=== PATIENT | female | born 1940 | race Caucasian/White ===

== ENCOUNTER → 2016-10-03 | Outpatient (CLI) | payer MEDICARE, OTHER ==
--- NOTE | 2016-10-03 13:13 | US ---
EXAMINATION TYPE: US venous doppler duplex LE DATE OF EXAM: 10/03/2016 12:54 PM COMPARISON: NONE CLINICAL HISTORY: R60.9 Edema, unspecified. Patient is post right knee enlacement 09-24-2016 SIDE PERFORMED: Bilateral TECHNIQUE: The lower extremity deep venous system is examined utilizing real time linear array sonog reshma with graded compression, doppler sonography and color-flow sonography. VESSELS IMAGED: Common Femoral Vein Deep Femoral Vein Greater Saphenous Vein * Femoral Vein Popliteal Vein Small Saphenous Vein * Proximal Calf Veins (* superficial vessels) Right Leg: Negative for DVT; however, at upper Femoral Vein, wall echoes are noted at stuck venous v georges, but vein is patent by color flow and compressible. Left Leg: Negative for DVT; however, at upper Femoral Vein, wall echoes are noted at stuck venous va lves, but vein is patent by color flow IMPRESSION: No evidence of deep venous thrombosis of either extremity.
== END | disposition home or self-care (01) ==
LOC: RADUSWWP 12:18
PROVIDERS: ATTEND Family Medicine
DX: R60.9 Edema, unspecified (principal)
CPT/HCPCS: 93970

== ENCOUNTER → 2017-10-07 | Outpatient (CLI) | payer MEDICARE ==
--- NOTE | 2017-10-08 10:00 | US ---
EXAMINATION TYPE: US carotid duplex BILAT DATE OF EXAM: 10/07/2017 COMPARISON: CLINICAL HISTORY: I65.29 Occlusion and stenosis of carotid. No history of TIA or stroke, HTN EXAM MEASUREMENTS: RIGHT: Peak Systolic Velocity (PSV) cm/sec ----- Right CCA: 84.4 ----- Right ICA: 72.1 ----- Right ECA: 114.8 ICA/CCA ratio: 0.9 RIGHT: End Diastole cm/sec ----- Right CCA: 19.4 ----- Right ICA: 23.2 ----- Right ECA: 12.4 LEFT: Peak Systolic Velocity (PSV) cm/sec ----- Left CCA: 73.9 ----- Left ICA: 84.4 ----- Left ECA: 122.2 ICA/CCA ratio: 1.1 LEFT: End Diastole cm/sec ----- Left CCA: 14.5 ----- Left ICA: 21.6 ----- Left ECA: 9.1 VERTEBRALS (direction of flow): Right Vertebral: Antegrade Left Vertebral: Antegrade Rhythm: Normal Bilateral wall thickening. No elevated velocities or significant stenosis. Small plaque seen in lef t posterior bulb. Incidental finding: right thyroid mixed nodule = 1.7 x 1.5 x 1.2 cm IMPRESSION: 1. Small plaque within the left common carotid artery. No significant flow-limiting stenosis is evide nt. 2. Incidental note is made of a heterogenous 1.5 cm thyroid nodule. Complete thyroid ultrasound could be performed for additional evaluation. Criteria for Assigning % of Stenosis / Diameter reduction (Estimation based on the indirect measurements of the internal carotid artery velocities (ICA PSV). 1. Normal (no stenosis)=ICA PSV < 125 cm/s: ratio < 2.0: ICA EDV<40 cm/s. 2. Less than 50% stenosis=ICA PSV < 125 cm/s: ratio < 2.0: ICA EDV<40 cm/s. 3. 50 to 69% stenosis=ICA PSV of 125 to 230 cm/s: ration 2.0 ? 4.0: ICA EDV 40-100 cm/s. 4. Greater than 70% stenosis to near occlusion= ICA PSV > 230 cm/s: ratio > 4.0: ICA EDV > 100 cm/s. 5. Near occlusion= ICA PSV velocities may be low or undetectable: variable ratio and ICA EDV. 6. Total occlusion=unable to detect flow.
== END | disposition home or self-care (01) ==
LOC: RADUSWWP 15:15
PROVIDERS: ATTEND Family Medicine
DX: I65.22 Occlusion and stenosis of left carotid artery (principal)
CPT/HCPCS: 93880

== ENCOUNTER → 2017-10-28 | Outpatient (CLI) | payer MEDICARE ==
--- NOTE | 2017-10-29 05:33 | US ---
EXAMINATION TYPE: US thyroid st tissue head/neck DATE OF EXAM: 10/28/2017 COMPARISON: Carotid ultrasound 10/07/2017 CLINICAL HISTORY: 77-year-old female E04.1 thyroid nodules. TECHNIQUE: Multiple sonographic images of the thyroid gland are obtained. FINDINGS: GLAND SIZE: Right Lobe: 4.7 x 1.9 x 2.2 cm Overall Parenchyma: heterogenous Left Lobe: 3.5 x 1.2 x 0.9 cm Overall Parenchyma: heterogeneous Isthmus Thickness: 0.4 cm NODULES RIGHT: # of nodules measured on right: 1 1. 1.8 X 1.3 x 1.7 cm mixed solid cystic nodule at the upper pole with well-defined margins; . Thi s nodule is wider than tall and shows no intranodular vascularity. Prior size: no prior other than carotid US LEFT: # of nodules measured on left: 0 ISTHMUS: # of nodules measured in the isthmus: 0 Bilateral neck scanned, no evidence of lymphadenopathy. IMPRESSION: Solitary 1.8 cm mixed solid cystic nodule in the right upper pole. This is mildly suspicious and shou ld be followed. FNA if greater than or equal to 2.5 cm.
== END | disposition home or self-care (01) ==
LOC: RADUSWWP 15:48
PROVIDERS: ATTEND Family Medicine
DX: E04.1 Nontoxic single thyroid nodule (principal)
CPT/HCPCS: 76536

== ENCOUNTER → 2017-10-29 | Outpatient (CLI) | payer MEDICARE ==
--- NOTE | 2017-10-30 17:18 | BD ---
EXAMINATION TYPE: Axial Bone Density DATE OF EXAM: 10/29/2017 COMPARISON: 06.10.2002 CLINICAL HISTORY: 77 YR OLD FEMALE....ICD-10 CODE Z13.820 SCREENING Height: 64.3 Weight: 192 FRAX RISK QUESTIONS: Secondary Osteoporosis: YES 3. Menopause before 45: YES RISK FACTORS HISTORY OF: Surgery to RT HIP REPLACEMENT When: 2017 Family History of Osteoporosis: NONE KNOWN Active: YES Diet low in dairy products/other sources of calcium: NO Postmenopausal woman: HYST AT AGE 37 YRS OLD MEDICATIONS: Thyroid Medications: BYSTOLIC FOR THYROID NODULE FOR ABOUT 20 YRS Additional Medications: BP MEDS, ORAL DIABETIC MEDS, VIT D Additional History: DIABETIC EXAM MEASUREMENTS: Bone mineral densitometry was performed using the Synarc System. Bone mineral density as measured about the Lumbar spine is: ----- L1-L4(G/cm2): 1.592 T Score Values are as follows: ----- L1: 1.8 ----- L2: 1.6 ----- L3: 5.0 ----- L4: 5.2 ----- L1-L4: 3.4 Bone mineral density has: INCREASTE 8.2% since study of: 06.10.2002 Bone mineral density about the L hip (g/cm2): 1.093 T Score values are as follows: : -----L Neck: -0.4 : -----L Total: 0.7 Bone mineral density has: INCREASED 2.7 % since study of: 06.10.2002 FRAX%s: THERE IS A 9.1% CHANCE OF A MAJOR OSTEOPOROTIC FX AND A 1.2% FOR HIP FX....PROBABILITY OF FX IN 10 YRS TIME IMPRESSION: Normal bone density NOTE: T-SCORE=SD OF THE YOUNG ADULT MEAN.
--- NOTE | 2017-10-31 09:02 | MM ---
Reason for exam: screening (asymptomatic). Last mammogram was performed 2 years and 4 months ago. History: Patient is postmenopausal. Family history of breast cancer in sister at age 65. Physical Findings: A clinical breast exam by your physician is recommended on an annual basis and results should be correlated with mammographic findings. MG Screening Mammo w CAD Bilateral CC and MLO view(s) were taken. Prior study comparison: July 06, 2015, bilateral MG 3d screening mammo w/cad. September 26, 2011, bilateral digital screening mammo w/CAD. Finding: There is a 4 mm indistinct round mass located 5 cm from the nipple in the anterior position of the right breast on CC view. New finding since July 06, 2015 and September 26, 2011. ASSESSMENT: Incomplete: need additional imaging evaluation, BI-RAD 0 RECOMMENDATION: Special view mammogram of the right breast. If lesion persists on supplemental views, image directed ultrasound is recommended. [facility] will attempt to contact patient to return for supplemental views and ultrasound if indicated.
== END | disposition home or self-care (01) ==
LOC: RADMAMWWP 14:46
PROVIDERS: ATTEND Family Medicine
DX: Z12.31 Encounter for screening mammogram for malignant neoplasm of breast (principal); Z13.820 Encounter for screening for osteoporosis
CPT/HCPCS: 77067; 77080

== ENCOUNTER → 2017-12-05 | Outpatient (CLI) | payer MEDICARE ==
[2017-12-05 11:24] VITALS: BP 150/81; PULSE 86; RESP 16; TEMP 97.9; BMI 29.3
--- NOTE | 2017-12-05 11:28 | P.GSHP ---
History of Present Illness H&P Date: 12/05/17 The patient is a 77-year-old white female who presents with a radiographic abnormality noted in her right breast. She initially underwent a bilateral mammogram and bone density on . The findings were a 4 mm indistinct from mass 5 cm from the nipple in the anterior position of the right breast on the CC view. This was felt to be a new finding since 2016. The patient then underwent special radiographic views of the right breast and an ultrasound of the right breast which revealed a small nodular equal density oval mass in the upper-outer quadrant of the right breast for which ultrasound core biopsy was recommended. Additionally the patient had a bone density performed which was normal. The patient herself does not feel any lumps or masses in her breast. The patient has no nipple discharge or changes for which she is concerned. Family History: sister: breast cancer Hormonal History: menarche: 11 : 5, 4 children, first at 15, breast fed: all menopause: hysterectomy at 38, not sure if left ovaries BCP: none estrogen: 4 months it made her sick Past surgical history: 1. Hysterectomy 2. Cholecystectomy 3. Knee repair 4. Hip replacement 5. Bilateral cataracts Past medical history: 1. diabetic 2. hypothyroidism, a thyroid nodule recently noted Social History: smoke: she herself is not a smoker however there and were both heavy smokers Alcohol: Negative Drugs: negative - Constitutional Constitutional: Denies chills, Denies fever - EENT Comment: glaucoma and macular degeneration Ears: deny: decreased hearing, tinnitus Ears, nose, mouth and throat: Denies headache, Denies sore throat - Breasts Breasts: bilateral: as per HPI - Cardiovascular Comment: angina in the past Cardiovascular: Reports chest pain, Denies shortness of breath - Respiratory Comment: SOB with walking - Gastrointestinal Gastrointestinal: Denies abdominal pain, Denies diarrhea, Denies nausea, Denies vomiting - Genitourinary (Female) Genitourinary: Denies dysuria, Denies hematuria - Menstruation Menstruation: Reports post hysterectomy - Musculoskeletal Comment: arthritis Musculoskeletal: Reports myalgias - Integumentary Comment: Psoriasis treated in the past and resolved skin cancer on her ankle Integumentary: Denies pruritus, Denies rash - Neurological Neurological: Denies numbness, Denies weakness - Psychiatric Psychiatric: Denies anxiety, Denies depression - Endocrine Comment: hypothyroid diabetes - Hematologic/Lymphatic Comment: none - Allergic/Immunologic Allergic/Immunologic: Reports seasonal allergies Medications and Allergies Home Medications Medication Instructions Recorded Confirmed Type Cholecalciferol (Vitamin D3) 2,000 unit PO HS 12/05/17 12/05/17 History [Vitamin D3] Cinnamon Bark [Cinnamon] 500 mg PO HS 12/05/17 12/05/17 History Folic Acid 0.4 mg PO DAILY 12/05/17 12/05/17 History Glimepiride [Amaryl] 4 mg PO DAILY 12/05/17 12/05/17 History Latanoprost/Pf [Latanoprost 0.005% 1 drop BOTH EYES HS 12/05/17 12/05/17 History Eye Drop] Levothyroxine Sodium [Synthroid] 75 mcg PO DAILY 12/05/17 12/05/17 History Lutein 20 mg PO HS 12/05/17 12/05/17 History Magnesium Oxide [Aviles] 500 mg PO HS 12/05/17 12/05/17 History Nebivolol HCl [Bystolic] 10 mg PO DAILY 12/05/17 12/05/17 History Olmesartan/Hydrochlorothiazide 1 each PO HS 12/05/17 12/05/17 History [Olmesartan-Hctz 40-12.5 mg Tab] Repaglinide 1 mg PO TID 12/05/17 12/05/17 History metFORMIN HCL [metFORMIN HCL ER] 750 mg PO DAILY 12/05/17 12/05/17 History Allergies Allergy/AdvReac Type Severity Reaction Status Date / Time Penicillins Allergy Rash/Hives Unverified 12/05/17 11:02 Surgical - Exam - General well developed, well nourished, no distress - Eyes normal ocular movement - ENT no hearing loss, no congestion - Neck no masses, trachea midline - Respiratory normal respiratory effort, clear to auscultation - Cardiovascular Rhythm: regular Heart Sounds: normal: S1, S2 - Abdomen Abdomen: soft, non tender, no guarding, no rigid, no rebound - Integumentary no rash, no abnormal pigmentation - Neurologic no disoriented, no combative - Musculoskeletal normal gait, normal posture - Psychiatric oriented to time, oriented to person, oriented to place, speech is normal, memory intact 6 examination: Right breast: Multi-positional exam no dominant masses or nodules of concern Right axilla: No adenopathy of concern Left breast: Multi-positional exam no dominant masses or nodules of concern Left axilla: No adenopathy of concern Results Report reviewed of mammogram 10-29-17, and also from 11-12-17 Assessment and Plan Assessment: Impression: 1. Radiographic abnormality right breast 2. Diabetes 3. Arthritis 4. Shortness of breath at times 5. Hypertension 6. Thyroid disorder Plan: 1. Ultrasound core biopsy area of concern right breast 2. Medical management of medical problems 3. Follow-up after ultrasound core biopsy of right breast CC: Dr. Winter
== END | disposition home or self-care (01) ==
LOC: WWCWWP 10:55
PROVIDERS: ATTEND Surgery
DX: Z53.9 Procedure and treatment not carried out, unspecified reason (principal)

== ENCOUNTER → 2017-12-18 | Day surgery (SDC) | payer MEDICARE ==
[2017-12-18 09:01] VITALS: RESP 16; BMI 30.4
--- NOTE | 2017-12-18 10:59 | USB ---
EXAMINATION TYPE: US biopsy breast VAD RT, MG diagnostic mammo RT wo CAD DATE OF EXAM: 12/18/2017 CLINICAL HISTORY: R92.8 ABN MAMMO. Abnormal ultrasound. TECHNIQUE: Ultrasound guided core biopsy of right breast with clip placement and follow-up two-view mammogram. COMPARISON: Mammogram and ultrasound November 12, 2017 and older studies. FINDINGS: The procedure of ultrasound guided core biopsy was explained to the patient. Benefits, alternatives, and risks were discussed. An informed consent was then obtained. The patient was placed in supine positioning for imaging and for the procedure. Preprocedure ultrasound redemonstrates elongated inferiorly anechoic lesion 10:00 position zone A measuring roughly 5 mm long axis. The overlying skin was prepped and draped in usual sterile fashion. Lidocaine buffered with bicarbonate was used as anesthetic into the skin and subcutaneous tissue up to area of concern in the right breast. Under ultrasound guidance, a 12-gauge vacuum assisted biopsy gun device was used to obtain 2 core samples. Lesion is not well seen after sampling. Following this, a biopsy clip was placed at site lesion was felt present. The patient tolerated the procedure well without any immediate complication. The patient was kept in the radiology department for short stay after the procedure and then discharged home in stable condition. Postprocedure mammogram shows successful deployment of clip corresponding to area of mammogram concern which is not as well-visualized after procedure. IMPRESSION: Successful, uncomplicated ultrasound guided core biopsy of area of concern in the right breast, full pathology results to follow. Low index of suspicion noted at time of procedure. Pathology Results: Benign BREAST, RIGHT, ULTRASOUND GUIDED CORE BIOPSY: Benign breast tissue without histopathologic changes. See note. Recommendation Follow up ultrasound of the right breast in 6 months. MALIK
[2017-12-18 11:02] VITALS: BP 131/74; PULSE 66; TEMP 98
== END | disposition home or self-care (01) ==
LOC: RADUSWWP 08:33
PROVIDERS: ATTEND Surgery
DX: R92.8 Other abnormal and inconclusive findings on diagnostic imaging of breast (principal); Z88.0 Allergy status to penicillin
CPT/HCPCS: 88305; 77065; 19083; A4648; J2001

== ENCOUNTER → 2017-12-26 | Outpatient (CLI) | payer MEDICARE ==
[2017-12-26 15:26] VITALS: BP 152/73; PULSE 94; RESP 18; TEMP 98.1; BMI 30.7
--- NOTE | 2017-12-26 15:28 | P.PN ---
Subjective Progress Note Date: 12/26/17 Principal diagnosis: Status post ultrasound-guided core biopsy of the right breast The patient is a 77-year-old white female who underwent an ultrasound-guided core biopsy of the right breast on [id number]. Pathology was benign breast tissue. This was felt to be concordant. The patient does not have any complaints at this time. These results were discussed with the patient and her friend. Objective - Constitutional General appearance: Present: average body habitus - EENT Eyes: Present: EOMI ENT: Present: hearing grossly normal - Neck Neck: Present: normal ROM - Respiratory Respiratory: bilateral: CTA - Cardiovascular Rhythm: regular Heart sounds: normal: S1, S2 - Gastrointestinal General gastrointestinal: Present: soft - Integumentary Integumentary Comment(s): Right breast examination of the biopsy site reveals it to be clean and dry with no hematoma no ecchymosis and no evidence of any infection - Musculoskeletal Musculoskeletal: Present: gait normal - Psychiatric Psychiatric: Present: A&O x's 3, appropriate affect, intact judgment & insight Assessment and Plan Assessment: Impression: 1. Benign right breast tissue at ultrasound-guided core biopsy site 2. Diabetic 3. Hypothyroidism thyroid nodule being followed by Dr. Spencer Plan: 1. Repeat right breast ultrasound in 6 months time with physician exam at that time 2. Medical management of medical problems 3. Continue follow thyroid nodule as per Dr. Spencer Cc: Dr. Winter
== END | disposition home or self-care (01) ==
LOC: WWCWWP 15:06
PROVIDERS: ATTEND Surgery
DX: Z53.9 Procedure and treatment not carried out, unspecified reason (principal)

== ENCOUNTER → 2018-06-23 | Outpatient (CLI) | payer MEDICARE ==
--- NOTE | 2018-06-24 08:34 | USB ---
Reason for exam: follow-up at short interval from prior study. History: Patient is postmenopausal and history of other cancer. Family history of breast cancer in sister at age 65. Benign US biopsy breast VAD RT of the right breast, December 18, 2017. Physical Findings: Nurse did not find any significant physical abnormalities on exam. US Breast Limited RT Right limited breast ultrasound including focal area of concern, retroareolar and axilla demonstrates no cystic or solid lesion seen. These results were verbally communicated with the patient and result sheet given to the patient on 06/23/18. ASSESSMENT: Negative, BI-RAD 1 RECOMMENDATION: Return to routine screening mammogram schedule for both breasts. Back on schedule for October 2018.
== END | disposition home or self-care (01) ==
LOC: RADUSWWP 06:48
PROVIDERS: ATTEND Surgery
DX: R92.8 Other abnormal and inconclusive findings on diagnostic imaging of breast (principal)

== ENCOUNTER → 2018-07-02 | Outpatient (CLI) | payer MEDICARE ==
--- NOTE | 2018-07-02 15:02 | US ---
EXAMINATION TYPE: US thyroid st tissue head/neck DATE OF EXAM: 07/02/2018 COMPARISON: October 28, 2017 CLINICAL HISTORY: E04.1 SINGLE THYROID GOITER. follow up exam, on meds for 15yrs GLAND SIZE: Right Lobe: 4.1 x 1.6 x 1.8 cm Overall Parenchyma: heterogenous Left Lobe: 4.4 x 0.8 x 1.4 cm Overall Parenchyma: homogeneous Isthmus Thickness: 0.4 cm NODULES RIGHT: # of nodules measured on right: 1 1. 2.4 X 1.9 x 1.3 cm mixed nodule at the mid pole with well-defined margins. This nodule is wider than tall and shows no intranodular vascularity. Prior size: 1.8 x 1.3 x 1.7 cm LEFT: # of nodules measured on left: 0 ISTHMUS: # of nodules measured in the isthmus: 0 Bilateral neck scanned, no evidence of lymphadenopathy. IMPRESSION: Stable nonspecific nodularity identified bilaterally.
== END | disposition home or self-care (01) ==
LOC: RADUSWWP 14:32
PROVIDERS: ATTEND Internal Medicine Endocrinology, Diabetes & Metabolism
DX: E04.1 Nontoxic single thyroid nodule (principal); E03.8 Other specified hypothyroidism
CPT/HCPCS: 36415; 76536; 84443

== ENCOUNTER → 2018-08-07 | Outpatient (CLI) | payer MEDICARE | END | disposition home or self-care (01) | LOC: RADUSWWP 12:19 | PROVIDERS: ATTEND Internal Medicine Endocrinology, Diabetes & Metabolism | DX: E03.8 Other specified hypothyroidism (principal) | CPT/HCPCS: 36415; 84443 ==

== ENCOUNTER 2018-12-29 17:43 | Emergency (ER) | payer MEDICARE ==
[2018-12-29] MEDS ORDERED: HYDROcodone/APAP 5-325MG 1 EACH TAB PO STA (17:50)
--- NOTE | 2018-12-29 18:00 | ED ---
Extremity Problem HPI - General Stated complaint: Fell arm swelling/pain Time Seen by Provider: 12/29/18 17:46 Source: patient, RN notes reviewed Mode of arrival: ambulatory Limitations: no limitations - History of Present Illness Initial comments: 78-year-old female presents emergency Department chief complaint of left arm pain. Patient states that she tripped and fell down a stair this morning around 6:30 AM. Patient states she has very limited range of motion of her left shoulder. Patient states that she has pain in her left elbow, left shoulder region. Denies any head injury no prior surgeries or fractures her left arm. - Related Data Home Medications Medication Instructions Recorded Confirmed Glimepiride [Amaryl] 4 mg PO DAILY 12/05/17 12/26/17 Latanoprost/Pf [Latanoprost 0.005% 1 drop BOTH EYES HS 12/05/17 12/26/17 Eye Drop] Levothyroxine Sodium [Synthroid] 75 mcg PO DAILY 12/05/17 12/26/17 Lutein 20 mg PO HS 12/05/17 12/26/17 Nebivolol HCl [Bystolic] 10 mg PO DAILY 12/05/17 12/26/17 Olmesartan/Hydrochlorothiazide 1 each PO DAILY 12/05/17 12/26/17 [Olmesartan-Hctz 40-12.5 mg Tab] Repaglinide 1 mg PO TID 12/05/17 12/26/17 metFORMIN HCL [metFORMIN HCL ER] 750 mg PO DAILY 12/05/17 12/26/17 Aspirin 325 mg PO DAILY 12/18/17 12/26/17 Allergies Allergy/AdvReac Type Severity Reaction Status Date / Time Penicillins Allergy Rash/Hives Verified 12/29/18 17:58 Review of Systems ROS Statement: Those systems with pertinent positive or pertinent negative responses have been documented in the HPI. ROS Other: All systems not noted in ROS Statement are negative. Past Medical History Past Medical History: Cancer, Diabetes Mellitus, Hypertension, Osteoarthritis (OA), Thyroid Disorder Additional Past Medical History / Comment(s): SKIN CANCER ON ANKLE History of Any Multi-Drug Resistant Organisms: None Reported Past Surgical History: Cholecystectomy, Hysterectomy, Joint Replacement, Orthopedic Surgery Additional Past Surgical History / Comment(s): Total right hip replacement, left knee arthroscopy Past Anesthesia/Blood Transfusion Reactions: No Reported Reaction Past Psychological History: No Psychological Hx Reported Smoking Status: Never smoker Past Alcohol Use History: None Reported Past Drug Use History: None Reported - Past Family History Sister(s) Family Medical History: Cancer Additional Family Medical History / Comment(s): BREAST General Exam Limitations: no limitations General appearance: alert, in no apparent distress Head exam: Present: atraumatic, normocephalic, normal inspection Eye exam: Present: normal appearance, PERRL, EOMI. Absent: scleral icterus, conjunctival injection, periorbital swelling ENT exam: Present: normal exam, normal oropharynx, mucous membranes moist, TM's normal bilaterally Neck exam: Present: normal inspection, full ROM. Absent: tenderness, meningismus, lymphadenopathy Respiratory exam: Present: normal lung sounds bilaterally. Absent: respiratory distress, wheezes, rales, rhonchi, stridor Cardiovascular Exam: Present: regular rate, normal rhythm, normal heart sounds. Absent: systolic murmur, diastolic murmur, rubs, gallop, clicks Extremities exam: Present: other (Tenderness at the left humeral head region, left elbow very limited range of motion there is moderate amount of swelling no ecchymosis noted radial pulses equal bilaterally) Skin exam: Present: warm, dry, intact, normal color. Absent: rash Course Vital Signs 12/29/18 17:53 Temperature 99.5 F Pulse Rate 105 H Respiratory 18 Rate Blood Pressure 186/89 O2 Sat by Pulse 98 Oximetry Procedures - Orthopedic Splinting/Casting Injury #1 Side: left Upper Extremity Injury Location: long arm Upper Extremity Immobilizer: sling/shoulder immobilizer, posterior splint, synthetic pre-padded splint Additional Comments: Neurovascular intact before and after procedure Medical Decision Making - Medical Decision Making 6-year-old female presented for a fall, left arm injury. Patient did have a minor head injury. CT was negative. X-ray of her left humerus was obtained shows a distal humeral fracture with displacement. I did discuss the case with on-call orthopedics Dr. Bains which the patient may be discharged in a long- arm splint, sling and follow-up appointment at her appointment at 9:00 tomorrow morning. Patient is neurovascularly intact. We did discuss return parameters. Disposition Clinical Impression: Fall, Closed fracture of left distal humerus, Minor head injury Disposition: HOME SELF-CARE Condition: Stable Instructions (If sedation given, give patient instructions): Arm Fracture in Adults (ED) Additional Instructions: Please return to the Emergency Department if symptoms worsen or any other concerns. Is patient prescribed a controlled substance at d/c from ED?: No Referrals: Fe Winter MD [Primary Care Provider] - 1-2 days Jim Bains MD [Medical Doctor] - 1-2 days Time of Disposition: 19:16
[2018-12-29 18:01] VITALS: RESP 18
--- NOTE | 2018-12-29 18:08 | XR ---
EXAMINATION TYPE: XR elbow complete LT DATE OF EXAM: 12/29/2018 COMPARISON: NONE HISTORY: Pain TECHNIQUE: 3 views FINDINGS: There is a spiral fracture of the distal shaft of the humerus. There is mild anterior angul ation at the fracture site. There is displacement up to 1.5 cm. Elbow joint is anatomic. IMPRESSION: Spiral fracture distal shaft of the humerus with displacement.
--- NOTE | 2018-12-29 18:09 | XR ---
EXAMINATION TYPE: XR humerus LT DATE OF EXAM: 12/29/2018 COMPARISON: NONE HISTORY: Pain TECHNIQUE: 2 view FINDINGS: There is a spiral fracture distal shaft of the humerus with displacement up to 1.3 cm. The shoulder joint is intact. IMPRESSION: Mildly displaced fracture distal shaft of the humerus.
--- NOTE | 2018-12-29 19:05 | CT ---
EXAMINATION TYPE: CT brain ze eaton DATE OF EXAM: 12/29/2018 COMPARISON: None HISTORY: Fall today with possible injury. CT DLP: 1432.6 mGycm Automated exposure control for dose reduction was used. TECHNIQUE: CT scan of the head and cervical spine are performed without contrast. FINDINGS: There is some cerebral cortical atrophy. There is no mass effect nor midline shift. There is no sign of intracranial hemorrhage. Calvarium is intact. There is some straightening of the cervical spine. There is degenerative disc space narrowing from C3 to T1 with spurring of the endplates. Posterior elements are intact. The skull base is intact. There is no evidence of cervical spine fracture. IMPRESSION: Multilevel spondylotic changes in the mid and lower cervical spine. No fracture. Mild cerebral atrophy. No acute intracranial abnormality.
[2018-12-29] MEDS ORDERED: ACET/COD 300 MG/30 MG STARTER PACK 6 TAB BTL PO STA (19:19)
[2018-12-29 19:40] VITALS: BP 135/65; PULSE 80; TEMP 99
== END 2018-12-29 19:35 | disposition home or self-care (01) ==
LOC: EC 17:43
DX: S42.402A Unspecified fracture of lower end of left humerus, initial encounter for closed fracture (principal); S09.90XA Unspecified injury of head, initial encounter; E11.9 Type 2 diabetes mellitus without complications; I10 Essential (primary) hypertension; E07.9 Disorder of thyroid, unspecified; M19.90 Unspecified osteoarthritis, unspecified site; Z79.82 Long term (current) use of aspirin; Z79.84 Long term (current) use of oral hypoglycemic drugs; Z79.890 Hormone replacement therapy; Z79.899 Other long term (current) drug therapy; Z88.0 Allergy status to penicillin; Z96.641 Presence of right artificial hip joint; Z85.828 Personal history of other malignant neoplasm of skin; W10.9XXA Fall (on) (from) unspecified stairs and steps, initial encounter
CPT/HCPCS: 29105; 70450; 72125; 99284

== ENCOUNTER 2019-01-02 10:52 | Day surgery (SDC) | payer MEDICARE ==
[2018-12-31 12:26] VITALS: BMI 31.4
[~2019-01-02 10:52] MED LIST: HYDROmorphone 0.5 MG/0.5 ML SYRINGE IVP PRN; MIDAZOLAM 2 MG/2 ML VIAL IV PRN; ONDANSETRON 4 MG/2 ML VIAL IVP ONE
[2019-01-02] MEDS ORDERED: LIDOCAINE 1% 20 ML VIAL (10MG/ML) FOR IV START INTRADERMA ONE (11:45)
[2019-01-02] MEDS: LACTATED RINGERS 1,000 ML IV SCH ×2 (11:45→16:13)
[2019-01-02 11:53] LABS: Glucose,Whole Blood 158 mg/dL (75-99)
[2019-01-02] MEDS ORDERED: fentaNYL (PF) 50 MCG/ML 2 ML AMP IVP ONE (12:44)
[2019-01-02] MEDS ORDERED: DEXAMETHASONE SOD PHOSPHATE 4 MG/ML 1 ML VIAL ONE (12:52)
[2019-01-02] MEDS ORDERED: ROCURONIUM BROMIDE 10 MG/ML 10 ML VIAL IV ONE (12:52)
[2019-01-02] MEDS ORDERED: HYDROmorphone (PF) 1 MG/ML ONE (12:52)
[2019-01-02] MEDS ORDERED: LIDOCAINE 1% INJ 10MG/ML (20 ML MDV) ONE (12:52)
[2019-01-02] MEDS ORDERED: ePHEDrine SULFATE/0.9% NACL/PF 50 MG/5 ML SYRINGE IV ONE (12:52)
[2019-01-02] MEDS ORDERED: GLYCOPYRROLATE 0.2 MG/ML 2 ML VIAL ONE (12:52)
[2019-01-02] MEDS ORDERED: PROPOFOL 10 MG/ML 20 ML VIAL IV ONE (12:52)
[2019-01-02] MEDS ORDERED: ROPIVACAINE 5 MG/ML 30 ML VIAL ONE (12:52)
[2019-01-02] MEDS ORDERED: NEOSTIGMINE 1 MG/ML 10 ML VIAL ONE (12:52)
[2019-01-02] MEDS ORDERED: fentaNYL (PF) 50 MCG/ML 2 ML AMP ONE (12:52)
--- NOTE | 2019-01-02 15:01 | P.ANPRN ---
Procedure Note - Anesthesia - Nerve Block Performed Left Interscalene Single Time Out Performed: Yes Date of Procedure: 01/02/19 Procedure Start Time: 12:43 Procedure Stop Time: 12:53 Location of Patient Procedure: PreOp Indication: Acute Post-Operative Pain, Requested by Surgeon Sedation Type: Sedate with meaningful contact maintained Preparation: Sterile Prep Position: Sitting Catheter: None Needle Types: Pajunk Needle Gauge: 21 Ultrasound used to visualize needle placement: Yes Ultrasound used to observe medication spread: Yes Injectate: 0.5% Ropivacaine (see comment for volume) (20 cc + decadron 4mg) Blood Aspirated: No Pain Paresthesia on Injection Noted: No Resistance on Injection: Normal Image Stored and Saved: Yes Events: Uneventful and Well Tolerated
[2019-01-02] MEDS ORDERED: TEMAZEPAM 15 MG CAP PO PRN (15:41)
[2019-01-02] MEDS ORDERED: diphenhydrAMINE 25 MG CAP PO PRN (15:41)
[2019-01-02] MEDS ORDERED: ONDANSETRON 4 MG/2 ML VIAL IVP PRN (15:41)
[2019-01-02] MEDS ORDERED: SENNOSIDES-DOCUSATE SODIUM 1 EACH TAB PO PRN (15:41)
[2019-01-02] MEDS ORDERED: HYDROcodone/APAP 5-325MG 1 EACH TAB PO PRN (15:41)
[2019-01-02] MEDS ORDERED: HYDROmorphone 0.5 MG/0.5 ML SYRINGE IVP PRN ×3 (15:41)
[2019-01-02 15:52] LABS: Glucose,Whole Blood 161 mg/dL (75-99)
--- NOTE | 2019-01-02 16:01 | P.OP ---
Date of Procedure: 01/02/19 Procedure(s) Performed: PREOPERATIVE DIAGNOSES: 1. Left humeral shaft fracture, oblique displaced POSTOPERATIVE DIAGNOSES: 1. Left humeral shaft fracture, oblique displaced PROCEDURES PERFORMED: 1. Left humeral shaft fracture open reduction internal fixation ANESTHESIA: Gen. SENIOR SALES MANAGER: Arianna Shields PA-C (assistance with: Patient positioning, retraction, exposure, fixation, hemostasis, closure, dressing, splint) COMPLICATIONS: None ESTIMATED BLOOD LOSS: Approximately 75 ml DISPOSITION: To post-anesthesia care unit INDICATIONS: Carissa is an 78-year-old female who sustained a left humerus shaft fracture recently during a fall. The fracture is displaced and angulated. I have advised open reduction and fixation. I have explained the risks and potential complications of this surgery as being inclusive of but not limited to bleeding, infection, scarring, discomfort, blood vessel and/or nerve damage, radial nerve injury, malunion, nonunion, stiffness, hardware irritation, deformity, rotational abnormality, need for further surgery, and other risks. We have extensively discussed the risk of stiffness of the shoulder and elbow joints, which is something that sometimes occurs with these kinds of injuries. We have discussed the need for rehabilitation and occupational therapy to regain motion. The consent form has been signed. PROCEDURE: After appropriate consent was obtained, the patient was taken to the operating room placed in the supine position. Anesthesia was initiated, and after confirmation of adequate anesthesia, the patient was carefully positioned in the lateral decubitus position. Care was taken to make sure that all pressure points were adequately padded. Bolster was secured with Coban for a posterior approach to the humerus. Prepping and draping were completed in the usual aseptic fashion using ChloraPrep, with the arm being prepped free. Timeout was called, confirming patient identity, side, procedure, and administration of antibiotics. Landmarks were outlined with a skin marking pen including medial and lateral epicondyles, acromion, and olecranon. Incision was created over the posterior aspect of the humerus for a length of approximately 20 cm. The incision was carried down through skin and into subcu tissues until muscular fascia was encountered. Triceps fascia was delineated with sharp dissection, and the apex of the triceps fascia was measured 1 inch proximal to this is the likely location of the radial nerve crossing. This was also correlated with distances of 15 centimeters or so from the lateral epicondyle and 20 or so centimeters from the medial epicondyle. Incision was then carried through the triceps fas deepali and into the triceps muscle. Triceps splitting approach was performed, the interval between the long head and lateral heads of the triceps was utilized. Meticulous muscular dissection was performed down to bone and hemostasis was obtained along the way using electrocautery. Radial nerve was identified along with its branches and dissected away from the posterior humerus and protected. Fracture site was then encountered and appeared to be a short oblique fracture. The fracture was mobilized and reduction was accomplished with gentle longitudinal traction and a [id number]-[id number] reduction forcep. Final reduction was accomplished using a [id number] bone-holding forcep. 2 provisional pins were placed to hold the reduction and then to 3.5 mm lag screws were placed across the fracture site from lateral to medial. Provisional pins were then removed, and an 8 hole 4.5 mm narrow periarticular lateral DCP plate was called for and contoured to match this patient's anatomy. The plate was placed in a somewhat lateral position relative to the distal humeral fragment to allow for good bony purchase distally. The plate was secured with 1 screw to start with, final adjustments were made to the plate position proximally with care to protect and retract the radial nerve. 3 screws were placed proximally and 4 locking distally and all had excellent purchase. The incision was thoroughly irrigated, final hemostasis was obtained using electrocautery, and closure was performed. Fascial closure was performed using O strata fix in running fashion, followed by subcutaneous closure with 2-0 Vicryl suture, followed by running subcuticular closure of strata fix and and Exofin tape. A soft dressing was placed. Vascular status was satisfactory of the hand. Patient tolerated the procedure well and taken to recovery room in stable condition.
--- NOTE | 2019-01-02 16:12 | XR ---
EXAMINATION TYPE: XR humerus LT DATE OF EXAM: 01/02/2019 COMPARISON: 12/29/2018 HISTORY: Fracture distal humerus TECHNIQUE: 2 view left humerus FINDINGS: There is interval placement of plate and screws through the distal humerus. Alignment appea rs near-anatomic. No new fractures are evident. Postsurgical changes are within soft tissues. IMPRESSION: 1. Placement of a plate and screws through the posterior distal left humeral fracture.
[2019-01-02 20:27] LABS: Glucose,Whole Blood 285 mg/dL (75-99)
[2019-01-02] MEDS ORDERED: LATANOPROST 0.005% OPHTH DROPS 2.5 ML BTL BOTH EYES SCH (21:00)
[2019-01-02] MEDS: REPAGLINIDE 1 MG TAB PO SCH (21:41)
[2019-01-03] MEDS: LACTATED RINGERS 1,000 ML IV SCH ×3 (01:39→13:03)
[2019-01-03] MEDS: HYDROcodone/APAP 5-325MG 1 EACH TAB PO PRN ×3 (06:30→15:43)
[2019-01-03] MEDS ORDERED: LEVOTHYROXINE 75 MCG TAB PO SCH (06:30)
[2019-01-03 07:03] LABS: Glucose,Whole Blood 270 mg/dL (75-99)
[2019-01-03] MEDS: REPAGLINIDE 1 MG TAB PO SCH ×3 (07:33→15:46)
[2019-01-03] MEDS: INSULIN ASPART (NovoLOG) 100 UNIT/ML VIAL SQ SCH ×2 (07:33→12:16)
[2019-01-03 08:35] VITALS: RESP 16
[2019-01-03] MEDS ORDERED: CHOLECALCIFEROL 1,000 UNIT TAB PO SCH (09:00)
[2019-01-03] MEDS ORDERED: GLIMEPIRIDE 4 MG TAB PO SCH (09:00)
--- NOTE | 2019-01-03 10:32 | P.HPIM ---
History of Present Illness H&P Date: 01/03/19 Carissa Ortiz is an 78-year-old female who was admitted to [facility] by Dr. Agrawal after sustaining a fall and having left humerus fracture, patient underwent left humeral open reduction and internal fixation, patient was admitted to the surgical floor postsurgery. Medical consultation was requested for management while hospitalized. Patient has a known history of [id number] diabetes mellitus, history of hypertension, history of hyperlipidemia, history of hypothyroidism. She has a known surgical history of cholecystectomy, hip replacement surgery, arthroscopic knee surgery, and eye surgery for glaucoma. Patient states she never smoked, she does not drink alcohol or use any kind of illicit drugs, she lives at home she is able to ambulate without the need of a walker or cane. She is hoping to be discharged back to her home after this hospitalization. On review of systems patient is alert and oriented 3 in no apparent distress, she is complaining of pain in the surgical site otherwise she denies any complaints, there is no fever or chills no headache or dizziness no chest pain no shortness of breath no cough, no nausea or vomiting no abdominal pain no diarrhea, no burning was urination no frequency or urgency no hematuria. There is no weakness or numbness in any of her extremities, no change in her vision gait or speech. Past Medical History Past Medical History: Cancer, Diabetes Mellitus, Eye Disorder, Hyperlipidemia, Hypertension, Osteoarthritis (OA), Thyroid Disorder Additional Past Medical History / Comment(s): HX SKIN CANCER ON LEFT ANKLE. BILATERAL GLAUCOMA. History of Any Multi-Drug Resistant Organisms: None Reported Past Surgical History: Cholecystectomy, Hysterectomy, Joint Replacement, Orthopedic Surgery Additional Past Surgical History / Comment(s): Total right hip replacement, left knee arthroscopy. Past Anesthesia/Blood Transfusion Reactions: No Reported Reaction Smoking Status: Never smoker - Past Family History Sister(s) Family Medical History: Cancer Additional Family Medical History / Comment(s): BREAST Cancer. Father Family Medical History: Cancer Additional Family Medical History / Comment(s): Stomach cancer. Medications and Allergies Home Medications Medication Instructions Recorded Confirmed Type Glimepiride [Amaryl] 6 mg PO DAILY 12/05/17 01/02/19 History Latanoprost/Pf [Latanoprost 0.005% 1 drop BOTH EYES HS 12/05/17 01/02/19 History Eye Drop] Levothyroxine Sodium [Synthroid] 75 mcg PO QAM 12/05/17 01/02/19 History Lutein 20 mg PO HS 12/05/17 01/02/19 History Nebivolol HCl [Bystolic] 10 mg PO QAM 12/05/17 01/02/19 History Olmesartan/Hydrochlorothiazide 1 each PO QAM 12/05/17 01/02/19 History [Olmesartan-Hctz 40-12.5 mg Tab] Repaglinide 1 mg PO TID 12/05/17 01/02/19 History metFORMIN HCL [metFORMIN HCL ER] 1,500 mg PO QAM 12/05/17 01/02/19 History Cholecalciferol [Vitamin D3 (25 1,000 unit PO DAILY 12/31/18 01/02/19 History Mcg = 1000 Iu)] HYDROcodone/APAP 5-325MG [Grotto[place] 1 - 2 each PO Q4-6H PRN #50 tab 01/02/19 Rx 5-325] Sennosides-Docusate Sodium 1 tab PO BID #60 tablet 01/02/19 Rx [Senokot-S] Allergies Allergy/AdvReac Type Severity Reaction Status Date / Time Penicillins Allergy Rash/Hives Verified 01/02/19 11:39 adhesive tape AdvReac Itching Verified 01/02/19 11:40 Physical Exam Vitals: Vital Signs Temp Pulse Resp BP Pulse Ox 01/03/19 07:00 98 F 67 16 130/68 97 01/03/19 02:04 98.1 F 80 19 119/62 95 01/02/19 20:00 98.1 F 92 16 133/62 94 L 01/02/19 17:00 72 122/74 01/02/19 16:45 70 123/69 01/02/19 16:30 97.9 F 73 16 116/66 95 01/02/19 16:15 78 16 140/63 96 01/02/19 16:00 74 16 143/65 99 01/02/19 15:45 80 14 143/63 99 01/02/19 15:39 97.4 F L 84 14 143/67 99 01/02/19 11:42 98.2 F 86 18 132/60 99 Intake and Output 01/02/19 01/03/19 01/03/19 22:59 06:59 14:59 Intake Total 600 118 Balance 600 118 Intake: IV 200 Oral 400 118 Other: Voiding Method Toilet # Voids 0 2 In general patient is alert and oriented 3 in no apparent distress HEENT head normocephalic and atraumatic Neck is supple no JVD no goiter no lymphadenopathy Chest exam reveals clear respiratory sounds no crackles no wheezing Cardiac exam reveals regular heart sounds S1 and S2 no gallops no murmurs Abdomen is soft nontender no organomegaly with normal bowel sounds Extremity exam reveals no edema no cyanosis or clubbing Neurological examination reveals no gross focal deficit Results Labs: Abnormal Lab Results - Last 24 Hours (Table) 01/02/19 01/02/19 01/02/19 Range/Units 11:38 15:50 20:25 POC Glucose (mg/dL) 158 H 161 H 285 H (75-99) mg/dL 01/03/19 Range/Units 07:01 POC Glucose (mg/dL) 270 H (75-99) mg/dL Thrombosis Risk Factor Assmnt - Choose All That Apply Any of the Below Risk Factors Present?: Yes Each Factor Represents 1 point: Obesity (BMI >25) Other Risk Factors: Yes Each Risk Factor Represents 2 Points: Major surgery Each Risk Factor Represents 3 Points: Age 75 years or older Other congenital or acquired thrombophilia - If yes, enter type in comment: No Thrombosis Risk Factor Assessment Total Risk Factor Score: 6 Thrombosis Risk Factor Assessment Level: High Risk Assessment and Plan Plan: #1 fall with left humeral shaft fracture, status post open reduction and internal fixation, on 01/02/2019 #2 [id number] diabetes mellitus, patient is maintained on metformin ER and Amaryl at home, medication resume patient had elevated glucose level this morning she received insulin per sliding scale, will reassess her glucose level if stable patient can be discharged home today to medical standpoint #3 underlying history of hypothyroidism maintained on Synthroid continue #4 underlying history of hypertension, well-controlled on medications, maintained on Benicar and bystolic will resume. #5 for pain management patient is maintained on Grottoes, will continue At this time will monitor blood glucose closely patient is maintained on sliding scale, possible discharge to home today or tomorrow
[2019-01-03] MEDS ORDERED: metFORMIN 500 MG TAB PO SCH (10:45)
--- NOTE | 2019-01-03 10:49 | P.DS ---
Providers Date of admission: 01/02/2019 Expected date of discharge: 01/03/19 Attending physician: Herb Agrawal Consults: 01/02/19 15:41 Consult Physician Routine Consulting Provider: Shivam Leonard Consult Reason/Comments: Medical management Do you want consulting provider notified?: Yes Primary care physician: Fe Winter - Discharge Diagnosis(es) (1) Hypertension Current Visit: Yes Status: Acute (2) Hyperlipidemia Current Visit: Yes Status: Acute (3) Type 2 diabetes mellitus Current Visit: Yes Status: Acute (4) Hypothyroidism Current Visit: Yes Status: Acute (5) Left arm pain Current Visit: Yes Status: Acute (6) Closed fracture of left distal humerus Current Visit: No Status: Acute Hospital Course: This is a pleasant 78-year-old female who presented with left humeral shaft fracture with oblique displacement who failed outpatient conservative therapy. She was admitted for a left humeral shaft fracture open reduction internal fixation. The patient tolerated the procedure well and did well postoperatively. She is having some pain at the left humerus but her pain is controlled medications. She has some active range of motion of the left shoulder without difficulty. She has no pain at the left shoulder. She is not performing active range of motion at the left elbow. She is able to perform range of motion with the left hand, fingers, and wrist without difficulty. She is having some difficulty with increased glucose postoperatively. Patient feels stable and she would like to be discharged home today. We discussed she'll be seen and examined by medicine today and will be cleared for discharge if cleared by medicine. Condition on day of discharge stable. Patient will be discharged home. Patient was cleared preoperatively for surgery by Dr. Winter. Patient currently denies any nausea, vomiting, fever, or chills. Patient is eating and voiding freely without difficulty. Patient should keep dressing over the left humerus and elbow clean, dry, and intact. Dressing may be changed in 48 hours postoperatively. If no drainage from the surgical site postoperative day, patient may shower without a dressing in 48 hours. She should continue to maintain sling for the left upper extremity. She should avoid any lifting with the left upper extremity. She may perform light activities with the left hand. Patient does have a medical history includes hypertension, hyperlipidemia, diabetes, and hypothyroidism. Patient should take medications as prescribed postoperatively. MAPS has been reviewed yesterday, 01/02/2019. An "Opiod Start Talking" Form has been signed and placed in the patient's chart. A prescription has been written for [place] 5 mg up to 25 mg 1-2 tabs every 4-6 hours as needed for pain, dispensed #50. Physical Exam on day of discharge: Patient is awake, alert, and oriented 3 Vital signs stable Good chest excursion with deep inspiration and expiration Dressing over the left distal humerus and elbow is clean, dry, and intact palpation over the left shoulder Active range of motion of the left wrist, hand, and fingers without difficulty Neurovascularly intact left upper extremity Left upper extremity sling is intact Procedures: Left humeral shaft fracture open reduction internal fixation. Patient Condition at Discharge: Stable Plan - Discharge Summary Discharge Rx Participant: Yes New Discharge Prescriptions: New HYDROcodone/APAP 5-325MG [[place] 5-325] 1 - 2 each PO Q4-6H PRN #50 tab PRN Reason: Pain Sennosides-Docusate Sodium [Senokot-S] 1 tab PO BID #60 tablet No Action Lutein 20 mg PO HS metFORMIN HCL [metFORMIN HCL ER] 1,500 mg PO QAM Latanoprost/Pf [Latanoprost 0.005% Eye Drop] 1 drop BOTH EYES HS Levothyroxine Sodium [Synthroid] 75 mcg PO QAM Repaglinide 1 mg PO TID Glimepiride [Amaryl] 6 mg PO DAILY Olmesartan/Hydrochlorothiazide [Olmesartan-Hctz 40-12.5 mg Tab] 1 each PO QAM Nebivolol HCl [Bystolic] 10 mg PO QAM Cholecalciferol [Vitamin D3 (25 Mcg = 1000 Iu)] 1,000 unit PO DAILY Discharge Medication List Glimepiride [Amaryl] 6 mg PO DAILY 12/05/17 [History] Latanoprost/Pf [Latanoprost 0.005% Eye Drop] 1 drop BOTH EYES HS 12/05/17 [History] Levothyroxine Sodium [Synthroid] 75 mcg PO QAM 12/05/17 [History] Lutein 20 mg PO HS 12/05/17 [History] Nebivolol HCl [Bystolic] 10 mg PO QAM 12/05/17 [History] Olmesartan/Hydrochlorothiazide [Olmesartan-Hctz 40-12.5 mg Tab] 1 each PO QAM 12/05/17 [History] Repaglinide 1 mg PO TID 12/05/17 [History] metFORMIN HCL [metFORMIN HCL ER] 1,500 mg PO QAM 12/05/17 [History] Cholecalciferol [Vitamin D3 (25 Mcg = 1000 Iu)] 1,000 unit PO DAILY 12/31/18 [History] HYDROcodone/APAP 5-325MG [[place] 5-325] 1 - 2 each PO Q4-6H PRN #50 tab 01/02/19 [Rx] Sennosides-Docusate Sodium [Senokot-S] 1 tab PO BID #60 tablet 01/02/19 [Rx] Follow up Appointment(s)/Referral(s): Arianna Shields, PAC [PHYSICIAN PROO[employer] [facility]] - 2 Weeks Activity/Diet/Wound Care/Special Instructions: May change dressing 48h post op. May shower if no drainage 48h post op. Maintain sling. Discharge Disposition: HOME SELF-CARE
[2019-01-03 11:55] LABS: Glucose,Whole Blood 221 mg/dL (75-99)
[2019-01-03] MEDS ORDERED: LOSARTAN-HCTZ 50-12.5 MG 1 EACH TAB PO SCH (12:00)
[2019-01-03] MEDS ORDERED: NEBIVOLOL 5 MG TAB PO SCH (12:15)
[2019-01-03] MEDS ORDERED: LOSARTAN 50 MG TAB PO SCH (12:15)
[2019-01-03 15:20] VITALS: BP 134/66; PULSE 72; TEMP 97.7
== END 2019-01-03 16:18 | disposition home or self-care (01) ==
LOC: OR 10:52 → 4SSUR 15:48 → OR 01-03 16:18
PROVIDERS: ATTEND Orthopaedic Surgery
DX: S42.332A Displaced oblique fracture of shaft of humerus, left arm, initial encounter for closed fracture (principal); W19.XXXA Unspecified fall, initial encounter; E78.5 Hyperlipidemia, unspecified; I10 Essential (primary) hypertension; E11.9 Type 2 diabetes mellitus without complications; E03.9 Hypothyroidism, unspecified; H91.90 Unspecified hearing loss, unspecified ear; R26.81 Unsteadiness on feet; Z97.3 Presence of spectacles and contact lenses; Z90.710 Acquired absence of both cervix and uterus; Z96.641 Presence of right artificial hip joint; Z98.49 Cataract extraction status, unspecified eye; Z90.49 Acquired absence of other specified parts of digestive tract; M19.90 Unspecified osteoarthritis, unspecified site; Z80.3 Family history of malignant neoplasm of breast; Z80.0 Family history of malignant neoplasm of digestive organs; Z79.84 Long term (current) use of oral hypoglycemic drugs; Z79.891 Long term (current) use of opiate analgesic; Z79.899 Other long term (current) drug therapy; Z88.0 Allergy status to penicillin; Z91.09 Other allergy status, other than to drugs and biological substances
CPT/HCPCS: 64415; 76942; 73060; 24515; C1713; J1100; J2710; J0690 ×2; J2405; J2001; J3010; J1170; J2795; J2704

== ENCOUNTER → 2024-04-30 | Outpatient (CLI) | payer MEDICARE ==
--- NOTE | 2024-04-30 11:18 | MM ---
Reason for Exam: Hx of benign breast biopsy. Last mammogram was performed 6 year(s) and 6 month(s) ago. Patient History: Menarche at age 11. First Full-Term at age 16. Hysterectomy at age 36. Postmenopausal. 12/18/2017, Benign Core Biopsy on the right side. Sister had breast cancer, age 65. Risk Values: Emma 5 year model risk: 2.8%. NCI Lifetime model risk: 2.8%. Prior Study Comparison: 05/05/2007 Bilateral Screening Mammogram, [facility]. 07/06/2015 Bilateral Screening Mammogram, [facility]. 10/29/2017 Bilateral Screening Mammogram, [facility]. 11/12/2017 Right Diagnostic Mammogram, [facility]. 12/18/2017 Right Diagnostic Mammogram, [facility]. Tissue Density: There are scattered areas of fibroglandular density. Findings: Analyzed By CAD. Right breast biopsy clip. No finding to correlate with patient's pain. Overall Assessment: Benign, BI-RAD 2 Management: Screening Mammogram of both breasts in 1 year. Results were given to the patient verbally at the time of exam. Patient should continue monthly self-breast exams. A clinical breast exam by your physician is recommended on an annual basis. This exam should not preclude additional follow-up of suspicious palpable abnormalities. Note on Emma scores and lifetime risk: 1. A Emma score greater than 3% is considered moderate risk. If this is the case, consider specialist referral to assess eligibility for a risk reducing agent. 2. If overall lifetime risk for the development of breast cancer is 20% or higher, the patient may qualify for future screening with alternating mammogram and breast MRI. [facility], , 04/30/2024 11:15 AM. Electronically signed and approved by: Ta Orellana DO
== END | disposition home or self-care (01) ==
LOC: RADMAMWWP 10:37
PROVIDERS: ATTEND Family Medicine
DX: R92.323 Mammographic fibroglandular density, bilateral breasts (principal); N64.4 Mastodynia; Z78.0 Asymptomatic menopausal state; Z80.3 Family history of malignant neoplasm of breast
CPT/HCPCS: 77066; G0279; 77062